=== PATIENT | female | born 1930 | race African-American/Black ===

== ENCOUNTER 2017-12-04 20:48 | Inpatient (IN) | payer MEDICARE, MEDICAID ==
--- NOTE | 2017-12-04 23:14 | RAD ---
CHEST ONE VIEW: History: Congestion. Comparison: 12-03-17 FINDINGS: Worsening perihilar opacities. The heart size is enlarged. Dense calcifications of the aorta. No pneumothorax. IMPRESSION: Worsening opacities concerning for worsening edema. Multifocal infection is also within the different ial. POS: [facility]
[2017-12-04 23:18] LABS: #Eosinphils 0.2 thou/uL (0.0-0.7); #Lymphocytes 1.4 thou/uL (1.20-3.40); #Monocytes 0.7 thou/uL (0.11-0.59); #Neutrophils 4.3 thou/uL (1.40-6.50); %Basophils 0.3 % (0.0-1.0); %Eosinophils 2.5 % (0.0-10.0); %Lymphocytes 20.7 % (21.0-51.0); %Monocytes 10.6 % (0.0-10.0); %Neutrophils 65.9 % (42.0-75.0); Hemoglobin 10.1 g/dL (12.0-16.0); Mean Corpuscular HGB CONC 32.6 g/dL (32.0-36.0); Mean Corpuscular Hemoglobin 30.3 pg (27.0-31.0); Mean Corpuscular Volume 93.2 fl (81.0-99.0); Mean Platelet Volume 8.3 fL (7.4-10.4); Platelet Count 258 thou/uL (130-400); RBC Distribution Width 13.7 % (11.5-14.5); Red Blood Cell (RBC) Count 3.34 mill/uL (4.20-5.40); White Blood Cell (WBC) Count 6.6 thou/uL (4.8-10.8)
[2017-12-04 23:38] LABS: ALT (SGPT) 8 U/L (8-55); AST (SGOT) 14 U/L (5-34); Albumin 3.2 g/dL (3.4-4.8); Alkaline Phosphatase 84 U/L (40-150); Anion Gap 14 mmol/L (10-20); BUN (Urea Nitrogen) 33 mg/dL (9.8-20.1); Bilirubin, Total 0.3 mg/dL (0.2-1.2); CK (CPK) 37 U/L (29-168); Calc. Creatinine Clearance 0 mL/min (70-130); Calcium 9.1 mg/dL (7.8-10.44); Carbon Dioxide 21 mmol/L (23-31); Chloride 107 mmol/L (98-107); Estimated GFR-MDRD 23; Globulin 4.2 g/dL (2.4-3.5); Glucose 107 mg/dL (83-110); Potassium 4.3 mmol/L (3.5-5.1); Protein, Total 7.4 g/dL (6.0-8.3); Sodium 138 mmol/L (136-145)
[2017-12-04 23:43] LABS: CKMB 0.7 ng/mL (0-6.6)
[2017-12-05] MEDS ORDERED: Furosemide 40 MG/4 ML VIAL ONE ×3 (00:01→16:47)
[2017-12-05 00:06] LABS: Bilirubin Negative (Negative); Blood, Urine Negative (Negative); Clarity CLEAR (Clear); Glucose, Urine (Dipstick) Negative (Negative); Leukocyte Negative (Negative); Nitrite Negative (Negative); Protein, Urine (Dipstick) Negative (Neg-Trace); Specific Gravity, Urine 1.018 (1.002-1.036); Urobilinogen 0.2 mg/dL (0.2-1.0); pH, Urine 5.5 (5.0-9.0)
[2017-12-05] MEDS ORDERED: Azithromycin 500 MG in Sodium Chloride 0.9% 250 ML 250 ML IVPB SCH (01:45)
[2017-12-05] MEDS ORDERED: Bisacodyl 5 MG TAB PO PRN (01:55)
[2017-12-05] MEDS ORDERED: Ondansetron ODT 4 MG TAB PO PRN (01:55)
[2017-12-05] MEDS ORDERED: Acetaminophen 650 MG Suppository PR PRN (01:55)
[2017-12-05] MEDS ORDERED: Ondansetron HCl/PF 4 MG/2 ML Vial IVP PRN (01:55)
[2017-12-05 04:32] LABS: #Eosinphils 0.2 thou/uL (0.0-0.7); #Lymphocytes 1.5 thou/uL (1.20-3.40); #Monocytes 0.7 thou/uL (0.11-0.59); #Neutrophils 3.7 thou/uL (1.40-6.50); %Basophils 0.5 % (0.0-1.0); %Lymphocytes 23.8 % (21.0-51.0); %Monocytes 11.9 % (0.0-10.0); %Neutrophils 60.8 % (42.0-75.0); Hemoglobin 10.2 g/dL (12.0-16.0); Mean Corpuscular HGB CONC 33.1 g/dL (32.0-36.0); Mean Corpuscular Hemoglobin 30.7 pg (27.0-31.0); Mean Corpuscular Volume 92.8 fl (81.0-99.0); Mean Platelet Volume 8.9 fL (7.4-10.4); Platelet Count 244 thou/uL (130-400); RBC Distribution Width 13.8 % (11.5-14.5); Red Blood Cell (RBC) Count 3.33 mill/uL (4.20-5.40); White Blood Cell (WBC) Count 6.1 thou/uL (4.8-10.8)
[2017-12-05 04:48] LABS: Anion Gap 14 mmol/L (10-20); BUN (Urea Nitrogen) 32 mg/dL (9.8-20.1); Calc. Creatinine Clearance 0 mL/min (70-130); Carbon Dioxide 21 mmol/L (23-31); Chloride 108 mmol/L (98-107); Estimated GFR-MDRD 24; Glucose 90 mg/dL (83-110); Potassium 3.7 mmol/L (3.5-5.1); Sodium 139 mmol/L (136-145)
--- NOTE | 2017-12-05 05:49 | HP ---
PRIMARY CARE PHYSICIAN: Presley Hatch D.O. CHIEF COMPLAINT: Dyspnea on exertion. HISTORY OF PRESENT ILLNESS: This is an 87-year-old -[place] female with a known history of d iastolic congestive heart failure, who reports a 1-month history of progressive dyspnea on exertion a nd increasing shortness of breath at rest as well. The patient reports that over the last week it robertson s got severely worse and so she went into the [place] emergency room on Tuesday night. They discus sed admission to the hospital was full and watched her in the ER overnight. They treated her for CHF and COPD exacerbations. She had some improvement in her symptoms this morning and so she was discha rged on a double dose of oral Lasix. The patient reports that she went home, she did take the increa sed dose of Lasix; however, she had poor urine output over the course of the day, had increasing shor tness of breath and severe dyspnea on exertion, so she returned to our emergency room. The patient r eports she does have oxygen at home, but she does not use it very often. She does report that she robertson s had a little bit of congestion and some cough productive of thick dark sputum over the last few day s. She has not noticed any worsening of edema in her lower extremities. PAST MEDICAL HISTORY: 1. Chronic respiratory failure with recurrent episodes of hypoxia. 2. Diastolic congestive heart failure. 3. Possible chronic obstructive pulmonary disease. 4. Hypertension. 5. Chronic kidney disease stage 2. 6. Paroxysmal atrial fibrillation on Xarelto. 7. Dyslipidemia. 8. Gastroesophageal reflux disease. 9. Depression. 10. Allergic rhinitis. 11. Chronic normocytic anemia. 12. Morbid obesity. PAST SURGICAL HISTORY: 1. Aortic valve replacement. 2. Cardioversion for atrial fibrillation. 3. Partial hysterectomy. SOCIAL HISTORY: The patient used to smoke but quit more than 10 years ago. No alcohol or illicit dr ug use. ALLERGIES: 1. IODINATED CONTRAST, oral and IV. 2. LEVOFLOXACIN. 3. CLINDAMYCIN. MEDICATIONS: 1. Lasix 40 mg daily, increased to 80 mg yesterday. 2. Nifedipine extended release 60 mg daily. 3. Risperdal 0.5 mg at night. 4. Xarelto 15 mg daily. 5. Amiodarone 200 mg every 3 days of the week. 6. Atorvastatin 10 mg at night. 7. Fluoxetine 20 mg daily. 8. Feosol 325 mg daily. 9. Hydroxyzine 10 mg 3 times a day. 10. Dexilant 60 mg daily. 11. Nifedipine 40 mg once a day in the morning. 12. Colchicine 0.6 mg daily. 13. Metoprolol succinate 25 mg daily. 14. Percy B one 250 mg daily. 15. Vitamin E D-alpha 400 units daily. 16. Flonase as needed. 17. Clonidine 0.1 mg as needed. 18. Bentyl 20 mg daily. 19. Calcitriol 0.25 mcg daily. 20. Uloric 1 tablet daily. 21. Methylprednisolone 2 mg every other day. 22. Spironolactone 12.5 mg daily. 23. Lorazepam 0.5 mg every 8 hours as needed. 24. Bactrim double strength 1 tablet twice a day. FAMILY HISTORY: Father of heart disease. Mother of complications of diabetes. REVIEW OF SYSTEMS: Constitutional: No fevers or chills. Eyes: No double vision or blurred vision. ENT: A little bit of congestion, no sore throat. Cardiovascular: She has no chest pain, no palpi tations or racing heart. Pulmonary: She gets coughing as per HPI, shortness of breath as per HPI. Sometimes, she gets a little anxious if there is a shortness of breath and taking an Ativan will help if she starts to feel anxious or panicky about it. Gastrointestinal: No abdominal pain, no nausea or vomiting, no diarrhea or constipation. Genitourinary: No dysuria or hematuria. Decreased urine output in spite of the Lasix, and it looks a little dark. Musculoskeletal: No specific muscle aches or joint pains currently. She does have some peripheral edema, worse in the right lower extremity, which is chronic for her ever since an old injury there. Skin: No rashes or other lesions that she has noted. Neurologic: No numbness, tingling, or focal weakness. PHYSICAL EXAMINATION: VITAL SIGNS: Blood pressure 128/51, pulse 68, respirations 24, O2 sat 94% on 2 liters of oxygen, tem perature 98.8. GENERAL: This is a well-developed, obese female who has her nighttime CPAP on now, nasal CPAP and is breathing easier with that on, in no distress. EYES: Pupils equally round and reactive to light. Oropharynx is clear without lesions, erythema, or exudate. NECK: Supple, no lymphadenopathy, no thyroid nodules or enlargement, no JVD. HEART: Regular rate and rhythm. She does have a minimal systolic murmur and a loud closing click S2 . LUNGS: Clear to auscultation bilaterally, no wheezes, crackles, or rhonchi. ABDOMEN: Soft, obese, nontender to palpation, normoactive bowel sounds, no hepatosplenomegaly or oth er masses. EXTREMITIES: She has trace edema in the right lower extremity, none in the left lower extremity. No clubbing or cyanosis. SKIN: No rashes or other lesions noted. NEUROLOGIC: She is able to move all extremities with equal strength and has no facial droop. PSYCHIATRIC: Alert and oriented x3, normal mood and affect. LABORATORY DATA: CBC without leukocytosis, hemoglobin is 10. The complete metabolic panel was notab le for a creatinine of 2.37, this is up from 2.01 two nights ago, the remainder is normal. Brain ludwin riuretic peptide is 506, which is elevated for her even more than the 450 it was yesterday and elevat ed beyond her typical baseline in the 200s. Troponins negative. Urinalysis is negative. Chest x-ra y: I did review the chest x-ray along with the radiologist's report. The patient does seem to have developed mild perihilar fluffy opacities consistent with the development of early pulmonary edema. This was not present on her chest x-ray from yesterday. ASSESSMENT AND PLAN: 1. Acute on chronic diastolic congestive heart failure refractory to outpatient treatment. We will need to admit to the hospital. We will get an echocardiogram. We will give IV Lasix as well as cont inue her spironolactone, daily weights and fluid restriction with a low-salt diet. We will consult Xiomy Millan. 2. Acute on chronic renal failure. This is getting worse and is making it more difficult to get her diuresed. We will consult Dr. Hughes, her current production reproduction manager, and she actually had an appointmen t with him in a couple of days and will monitor closely. 3. Hypertension. We will resume the patient's home medications. 4. Atrial fibrillation. We will resume the patient's Xarelto. 5. Gastrointestinal prophylaxis. Put the patient back on her PPI. 6. Deep venous thrombosis prophylaxis. The patient already is on the Xarelto. 7. CODE STATUS: The patient is a full code. Should she be incapacitated, her son will be her medic al decision maker, his name is Manoj Roper.
[2017-12-05] MEDS: Furosemide 40 MG/4 ML VIAL SLOW IVP SCH ×2 (07:30→16:49)
[2017-12-05] MEDS ORDERED: Famotidine 20 MG TAB PO SCH (09:00)
--- NOTE | 2017-12-05 11:00 | CON ---
DATE OF CONSULTATION: 12/05/2017 CONSULTING PHYSICIAN: Dr. Chew. REASON FOR CONSULTATION: Acute kidney injury. REASON FOR ADMISSION: Shortness of breath. HISTORY OF PRESENT ILLNESS: This is an 87-year-old female with history of CHF, chronic kidne y disease, hypertension, hyperlipidemia, depression who came to the hospital with shortness of breath . She has been having fluid overload and is being treated for that. Her renal function was also fou nd to be worse from her baseline. Her baseline creatinine runs around 1.5-2 and she was found at 2.3 , but got better with IV fluids. She is also feeling better and breathing better. Her son was at th e bedside. No fever or chills. She was recently started on some antibiotics and no chest pain histo ry or palpitation reported. No abdominal pain, nausea, vomiting. PAST MEDICAL HISTORY: Positive for chronic respiratory failure with hypoxia, congestive heart failur e, COPD, hypertension, CKD, atrial fibrillation, hyperlipidemia, depression, anemia, morbid obesity. PAST SURGICAL HISTORY: Aortic valve replacement, cardioversion for atrial fibrillation, partial hyst erectomy. HOME MEDICATIONS: Include Lasix, nifedipine, Risperdal, Xarelto, amiodarone, atorvastatin, fluoxetin e, Feosol, hydroxyzine, Dexilant, colchicine, metoprolol, Percy-B, vitamin E, Flonase, clonidine, Bent yl, Calcitriol, Uloric, methylprednisolone, spironolactone, lorazepam, Bactrim. ALLERGIES: To IODINATED CONTRAST, LEVOFLOXACIN and CLINDAMYCIN. SOCIAL HISTORY: Quit smoking 10 years back. No alcohol or illicit drug abuse. FAMILY HISTORY: Positive for heart disease. REVIEW OF SYSTEMS: The following complete review of systems was negative, unless otherwise mentioned in the HPI or below: Constitutional: Weight loss or gain, ability to conduct usual activities. Skin: Rash, itching. Eyes: Double vision, pain. ENT/Mouth: Nose bleeding, neck stiffness, pain, tenderness. Cardiovascular: Palpitations, dyspnea on exertion, orthopnea. Respiratory: Shortness of breath, wheezing, cough, hemoptysis, fever or night sweats. Gastrointestinal: Poor appetite, abdominal pain, heartburn, nausea, vomiting, constipation, or diarr hea. Genitourinary: Urgency, frequency, dysuria, nocturia. Musculoskeletal: Pain, swelling. Neurologic/Psychiatric: Anxiety, depression. Allergy/Immunologic: Skin rash, bleeding tendency. PHYSICAL EXAMINATION: GENERAL: This is a morbidly obese female, in no apparent distress. VITAL SIGNS: Temperature 98.6, pulse 65, respirations 16, blood pressure 113/42. HEENT: Atraumatic, normocephalic. Oral mucosa is moist. NECK: Supple. CARDIOVASCULAR: S1, S2, heard. Rate and rhythm regular. RESPIRATORY: Clear. GASTROINTESTINAL: Abdomen is soft. MUSCULOSKELETAL: 1+ edema. DERMATOLOGIC: No skin rash. NEUROLOGIC: Alert, awake. PSYCHIATRIC: Mood and affect normal. LABORATORY DATA: Hemoglobin is 10.2, potassium is 3.7, BUN is 32, creatinine is 2.8. ASSESSMENT AND PLAN: 1. Acute kidney injury on chronic kidney disease, baseline creatinine around 1.5, currently creatini ne is getting better with IV diuretics. Agree with diuretics as tolerated. Currently on Lasix IV tw ice a day. We will follow the renal function and electrolytes. 2. Hypokalemia, mild, monitor closely magnesium and potassium level and replace. 3. Hypoalbuminemia. 4. Hypertension, stable. 4. Anemia of chronic disease. 5. Obesity. 6. Acidosis, mild. 7. Elevated BNP with fluid overload. 8. Cardiorenal syndrome. Agree with IV diuretics for now. Monitor renal function, which is getting better on diuresis, so mos t likely acute kidney injury is secondary to cardiorenal syndrome. We will continue to follow. Than k marcus for the consultation.
[2017-12-05] MEDS: Spironolactone 25 MG TAB PO SCH (13:55)
[2017-12-05] MEDS: Docusate 100 MG CAP PO SCH ×2 (13:56→21:27)
[2017-12-05] MEDS ORDERED: Lorazepam 0.5 MG TAB PO PRN (15:15)
[2017-12-05] MEDS ORDERED: cloNIDine 0.1 MG TAB PO PRN (15:15)
--- NOTE | 2017-12-05 15:18 | PDOC.EVN ---
Event Note - Event Note Event Note: Pt seen and examined in ER HOLD son at [facility].Qs answered.chart reviewed. feels much better. VSS NAD CTA b/l w few basilar carckles. RRR labs reviewed. Cr improving. 1.Ac Diastolic CHF 2.Possible PNA 3.Ac on CKD restart home meds including Eliquis. Awaiting cardiology and Nephrology recs. cont lasix. am labs
[2017-12-05] MEDS ORDERED: Furosemide 20 MG/2 ML VIAL ONE (16:46)
[2017-12-05] MEDS ORDERED: Amoxicillin/Potassium Clav 875 MG TAB ONE (16:53)
[2017-12-05] MEDS: Apixaban 5 MG TAB PO SCH ×2 (17:12→21:27)
[2017-12-05] MEDS: Amoxicillin/Potassium Clav 875 MG TAB PO SCH ×2 (17:12→21:27)
[2017-12-05] MEDS: risperiDONE 1 MG TAB PO SCH (21:28)
[2017-12-05] MEDS: Atorvastatin Calcium 10 MG TAB PO SCH (21:28)
--- NOTE | 2017-12-05 22:42 | CON ---
DATE OF CONSULTATION: 12/05/2017 REASON FOR CONSULTATION: Congestive heart failure. HISTORY OF PRESENT ILLNESS: Jacquelin is an 87-year-old woman. She has a history of transcutaneous aorti c valve replacement, history of atrial fibrillation, history of diastolic heart failure. The patient was brought to the hospital in [place] a couple of nights ago, she received diuretics with good res ponse. There are no beds here. She was released home, but still had recurrent difficulty breathing. She came back to the emergency room and was given additional diuretics. She is beginning to improv e now, she is feeling better. HOME MEDICATIONS: 1. Nifedipine long-acting 60 mg a day. 2. Lasix. 3. Risperdal. 4. Eliquis. 5. Amiodarone 100 mg a day. 6. Metoprolol. 7. Lipitor. 8. Hydralazine 25 mg 3 times a day. ALLERGIES: 1. IODINE CONTRAST. 2. LEVOFLOXACIN. 3. CLINDAMYCIN. SOCIAL HISTORY: Previous smoking, quit over 10 years ago. PAST SURGICAL HISTORY: 1. Transcutaneous aortic valve replacement several years ago. 2. Cardioversion for atrial fibrillation. PAST MEDICAL HISTORY: 1. Diastolic heart failure. 2. Paroxysmal atrial fibrillation. 3. Stage 2 renal failure. REVIEW OF SYSTEMS: Constitutional: No significant weight gain or loss. Vision: No changes. Heari ng: No changes. Pulmonary: No cough or wheezing. Gastrointestinal: No nausea, vomiting, diarrhea . Skin: No rashes. Neurologic: No unilateral weakness or numbness. Psychiatric: No unusual depr ession or anxiety. PHYSICAL EXAMINATION: GENERAL: This is a pleasant elderly woman. She says she is feeling better. VITAL SIGNS: Blood pressure 171/69, pulse 60 regular. HEENT: Eyes, sclerae nonicteric. Mouth, mucous membranes moist. NECK: Supple, no lymphadenopathy. LUNGS: Clear, no wheezing, rales or rhonchi. CARDIAC: Normal S1, normal S2. There is no murmur, rub or gallop. ABDOMEN: Soft, nontender, no hepatosplenomegaly. EXTREMITIES: Warm, dry. No clubbing, no cyanosis or edema. PERTINENT LABORATORY FINDINGS: BNP 506.7, creatinine 2.28. Estimated GFR is 24. On the monitor, tommy porter is in sinus rhythm. Echocardiogram reveals normal transcutaneous aortic valve function, normal ejection fraction, pulmona ry hypertension with pulmonary artery pressure 70 mmHg systolic. CONCLUSION: 1. Diastolic heart failure. 2. Previous transcutaneous aortic valve functioning normally. 3. Stage 4 renal failure. 4. History of hypertension. PLAN: 1. Agree with decreasing nifedipine. 2. Diuretics intravenously. 3. Continue anticoagulation, reduced dose. 4. I will be glad to follow with you.
[2017-12-06] MEDS: Levothyroxine Sodium 75 MCG TAB PO SCH (05:30)
[2017-12-06] MEDS: Furosemide 40 MG/4 ML VIAL SLOW IVP SCH ×2 (05:30→15:04)
[2017-12-06 05:50] LABS: #Eosinphils 0.2 thou/uL (0.0-0.7); #Lymphocytes 1.2 thou/uL (1.20-3.40); #Monocytes 0.8 thou/uL (0.11-0.59); #Neutrophils 4.7 thou/uL (1.40-6.50); %Basophils 0.1 % (0.0-1.0); %Eosinophils 3.1 % (0.0-10.0); %Lymphocytes 16.9 % (21.0-51.0); %Monocytes 11.5 % (0.0-10.0); %Neutrophils 68.4 % (42.0-75.0); Hemoglobin 10.3 g/dL (12.0-16.0); Mean Corpuscular HGB CONC 30.9 g/dL (32.0-36.0); Mean Corpuscular Hemoglobin 29.2 pg (27.0-31.0); Mean Corpuscular Volume 94.5 fl (81.0-99.0); Mean Platelet Volume 8.6 fL (7.4-10.4); Platelet Count 245 thou/uL (130-400); RBC Distribution Width 13.8 % (11.5-14.5); Red Blood Cell (RBC) Count 3.54 mill/uL (4.20-5.40); White Blood Cell (WBC) Count 6.8 thou/uL (4.8-10.8)
[2017-12-06 06:12] LABS: Anion Gap 16 mmol/L (10-20); BUN (Urea Nitrogen) 31 mg/dL (9.8-20.1); Calc. Creatinine Clearance 33 mL/min (70-130); Calcium 9.1 mg/dL (7.8-10.44); Carbon Dioxide 17 mmol/L (23-31); Chloride 109 mmol/L (98-107); Estimated GFR-MDRD 29; Glucose 80 mg/dL (83-110); Potassium 4.1 mmol/L (3.5-5.1); Sodium 138 mmol/L (136-145)
[2017-12-06] MEDS ORDERED: Ferrous Sulfate 325 MG TAB PO SCH (09:00)
[2017-12-06] MEDS ORDERED: (Febuxostat [Uloric] 40 MG) PO SCH (09:00)
[2017-12-06] MEDS: Apixaban 5 MG TAB PO SCH ×2 (09:14→21:49)
[2017-12-06] MEDS: Amiodarone 200 MG TAB PO SCH (09:14)
[2017-12-06] MEDS: Amoxicillin/Potassium Clav 875 MG TAB PO SCH ×2 (09:14→21:49)
[2017-12-06] MEDS: hydrALAZINE 25 MG TAB PO SCH (09:15)
[2017-12-06] MEDS: Ferrous Sulfate 325 MG TAB PO SCH (09:15)
[2017-12-06] MEDS: methylPREDNISolone 4 mg Tablet PO SCH (09:15)
[2017-12-06] MEDS: FLUoxetine HCl 20 MG CAP PO SCH (09:15)
[2017-12-06] MEDS: Docusate 100 MG CAP PO SCH ×2 (09:15→21:50)
[2017-12-06] MEDS: Calcitriol 0.25 MCG CAP PO SCH (09:15)
[2017-12-06] MEDS: Potassium Chloride 20 MEQ TAB PO SCH (09:16)
[2017-12-06] MEDS: Spironolactone 25 MG TAB PO SCH (09:16)
[2017-12-06] MEDS: NIFEdipine XL 30 MG TAB PO SCH (09:16)
[2017-12-06] MEDS: Vitami E (Dl,Tocopheryl Acet) 400 UNITS CAP PO SCH (09:17)
--- NOTE | 2017-12-06 13:43 | PRG ---
DATE OF SERVICE: 12/06/2016 SUBJECTIVE: Patient was seen and examined at bedside and overnight events noted. Patient denies any shortness of breath or chest pain or palpitation. No history of nausea or vomiting or diarrhea or f ever or chills or cramps. OBJECTIVE: GENERAL: This is an obese elderly female in no apparent distress. VITAL SIGNS: Temperature 99.3, pulse 71, respiratory rate 20, blood pressure 123/60. HEENT: Atraumatic, normocephalic. Oral mucosa is moist. NECK: Supple. CARDIOVASCULAR: S1, S2 heard. Rate and rhythm regular. RESPIRATORY: Clear to auscultation. GASTROINTESTINAL: Abdomen is soft. MUSCULOSKELETAL: 1+ edema. DERMATOLOGIC: No skin rash. NEUROLOGIC: Alert and awake and oriented x3. No focal neurologic deficits. Moving all the extremiti es. LABORATORY DATA: Potassium is 4.1, BUN is 31, creatinine 1.9. ASSESSMENT AND PLAN: 1. Acute kidney injury on chronic kidney disease, stage 3. Renal function is getting better with di uretics. 2. Cardiorenal syndrome. 3. Edema. 4. Fluid overload. 5. Obesity. 6. Hypokalemia, replace and monitor. 7. Hypoalbuminemia. 8. Plan is to continue on diuretics. Renal function is getting better. Continue close monitor, livia al function and electrolytes.
--- NOTE | 2017-12-06 16:06 | PRG ---
DATE OF SERVICE: 12/06/2017 SUBJECTIVE: Ms. Roper is breathing better today. No chest pain. No shortness of breath. OBJECTIVE: VITAL SIGNS: Her oxygen saturation is 94% on 2 liters. Blood pressure is variable, apparently after she got up to walk had pressure with 204/82, but then sitting is 138/58. Pulse 76 and regular. LUNGS: Clear. CARDIAC: Normal S1, normal S2. ASSESSMENT: 1. Diastolic congestive heart failure. 2. Renal failure stage 3, stable, actually improved. Creatinine is 1.98. 3. Hypertension, labile. 4. Previous transcutaneous aortic valve replacement with normal function of the valve. PLAN: 1. Continue the diuretics. 2. We will check iron levels in the morning. 3. Continue to monitor I and O. I think it has not been measured accurately.
--- NOTE | 2017-12-06 16:35 | PDOC.PN ---
- Subjective Encounter Start Date: 12/06/17 Encounter Start Time: 16:25 Subjective: f/u for acute/chronic diastolic CHF with EF 55% and pulm HTN. Overall SOB -: improved. Ambulated short distance with SOB. Mild cough. - Objective Resuscitation Status: Resuscitation Status FULL:Full Resuscitation MAR Reviewed: Yes Vital Signs & Weight: Vital Signs (12 hours) Temp Pulse Pulse Pulse Resp BP BP 12/06/17 11:40 98.6 F 76 17 12/06/17 10:15 69 86 138/58 L 204/82 H 12/06/17 08:37 73 80 153/67 H 158/67 H 12/06/17 07:46 98.6 F 76 17 12/06/17 07:43 97.6 F 73 20 BP Pulse Ox Pulse Ox Pulse Ox 12/06/17 11:40 137/60 96 12/06/17 10:15 12/06/17 08:37 91 L 90 L 12/06/17 07:46 92 L 12/06/17 07:43 146/64 H 92 L Weight Weight 239 lb I&O: 12/05/17 12/06/17 12/07/17 06:59 06:59 06:59 Intake Total 240 Output Total 800 Balance -560 Result Diagrams: 12/06/17 05:12 12/06/17 05:12 Additional Labs: Microbiology 12/05/17 00:27 Venous blood - Right Arm Blood Culture - Preliminary Specimen has been received and culture in progress. No Growth to date. 12/05/17 00:27 Venous blood - Left Arm Blood Culture - Preliminary Specimen has been received and culture in progress. No Growth to date. Laboratory Tests 12/04/17 12/04/17 12/04/17 23:03 23:03 23:03 Hgb 10.1 L Creatinine 2.37 H B-Natriuretic Peptide 506.7 H 12/05/17 12/05/17 03:59 03:59 Hgb 10.2 L Creatinine 2.28 H B-Natriuretic Peptide Radiology Reviewed by me: Yes (2D echo - EF 55%, pulm HTN, ANDERSON, bioprosthetic AV ) EKG Reviewed by me: Yes (Tele - SR in 70's) Phys Exam - Physical Examination Constitutional: NAD smiling, responsive HEENT: PERRLA Neck: no JVD, supple diminished in bases II/ LIZ Cardiovascular: RRR Gastrointestinal: soft, non-tender, no distention, positive bowel sounds mild peripheral edema Musculoskeletal: pulses present Neurological: normal sensation, moves all 4 limbs Psychiatric: A&O x 3 Skin: normal turgor, cap refill <2 seconds Dx/Plan (1) Acute diastolic heart failure Code(s): I50.31 - ACUTE DIASTOLIC (CONGESTIVE) HEART FAILURE Status: Acute Comment: Continue Lasix 40mg IV q12h, follow I/O's and daily weight (2) Acute on chronic kidney disease, stage 3 Code(s): N18.3 - CHRONIC KIDNEY DISEASE, STAGE 3 (MODERATE) Status: Acute Comment: Resolving, continue to monitor with diuresis (3) Acute respiratory failure with hypoxemia Code(s): J96.01 - ACUTE RESPIRATORY FAILURE WITH HYPOXIA Status: Acute Comment: Acute component improved, chronic hypoxia with home O2 requirement (4) Obesity (BMI 30-39.9) Code(s): E66.9 - OBESITY, UNSPECIFIED Status: Chronic (5) HTN (hypertension) Code(s): I10 - ESSENTIAL (PRIMARY) HYPERTENSION Status: Chronic Qualifiers: Hypertension type: essential hypertension Qualified Code(s): I10 - Essential (primary) hypertension Comment: Stable, continue home medication regimen (6) Afib Code(s): I48.91 - UNSPECIFIED ATRIAL FIBRILLATION Status: Chronic Qualifiers: Atrial fibrillation type: paroxysmal Qualified Code(s): I48.0 - Paroxysmal atrial fibrillation Comment: Contiue Eliquis 2.5mg BID, rate-controlled and currently in SR - Plan plan discussed w/ family, continue antibiotics, PT/OT, manager social work, respiratory therapy, out of bed/ambulate, DVT proph w/SCDs Stable overall -: Continue Lasix 40mg IV q12h -: OOB/ambulate with assist -: Promethazine 12.5mg PO q6h prn -: Continue Augmentin 875mg BID * AM lab: BMP * Likely home in 24h
[2017-12-06] MEDS: Atorvastatin Calcium 10 MG TAB PO SCH (21:50)
[2017-12-06] MEDS: risperiDONE 1 MG TAB PO SCH (21:50)
[2017-12-06] MEDS: Promethazine HCl 6.25 MG/5 ML Syrup PO PRN (21:51)
[2017-12-06] MEDS ORDERED: Furosemide 40 MG/4 ML VIAL SLOW IVP SCH (22:00)
[2017-12-06] MEDS: Acetaminophen 325 MG TAB PO PRN (22:02)
[2017-12-07] MEDS: Furosemide 40 MG/4 ML VIAL SLOW IVP SCH ×2 (05:45→15:12)
[2017-12-07] MEDS: Levothyroxine Sodium 75 MCG TAB PO SCH (05:45)
[2017-12-07 06:00] LABS: Iron 27 ug/dL (50-170); Iron Binding Capacity, Total 185 mcg/dL (265-497)
[2017-12-07 06:01] LABS: Anion Gap 12 mmol/L (10-20); BUN (Urea Nitrogen) 33 mg/dL (9.8-20.1); Calc. Creatinine Clearance 29 mL/min (70-130); Calcium 9.2 mg/dL (7.8-10.44); Carbon Dioxide 23 mmol/L (23-31); Chloride 105 mmol/L (98-107); Estimated GFR-MDRD 25; Glucose 86 mg/dL (83-110); Iron 25 ug/dL (50-170); Potassium 3.7 mmol/L (3.5-5.1); Sodium 136 mmol/L (136-145)
[2017-12-07 06:25] LABS: Hemoglobin 10.9 g/dL (12.0-16.0); Lymphocytes 16 % (21-51); MDiff Complete? YES; Mean Corpuscular HGB CONC 32.5 g/dL (32.0-36.0); Mean Corpuscular Hemoglobin 30.4 pg (27.0-31.0); Mean Corpuscular Volume 93.5 fl (81.0-99.0); Mean Platelet Volume 8.7 fL (7.4-10.4); Monocytes 15 % (0-10); Neutrophil 69 % (42-75); Platelet Count 227 thou/uL (130-400); RBC Distribution Width 13.7 % (11.5-14.5); Red Blood Cell (RBC) Count 3.59 mill/uL (4.20-5.40)
[2017-12-07] MEDS: Amiodarone 200 MG TAB PO SCH (09:09)
[2017-12-07] MEDS: FLUoxetine HCl 20 MG CAP PO SCH (09:10)
[2017-12-07] MEDS: Apixaban 5 MG TAB PO SCH ×2 (09:10→21:02)
[2017-12-07] MEDS: Ferrous Sulfate 325 MG TAB PO SCH (09:10)
[2017-12-07] MEDS: hydrALAZINE 25 MG TAB PO SCH (09:10)
[2017-12-07] MEDS: Docusate 100 MG CAP PO SCH ×2 (09:10→21:02)
[2017-12-07] MEDS: Amoxicillin/Potassium Clav 875 MG TAB PO SCH ×2 (09:10→21:01)
[2017-12-07] MEDS: Potassium Chloride 20 MEQ TAB PO SCH (09:11)
[2017-12-07] MEDS: NIFEdipine XL 30 MG TAB PO SCH (09:11)
[2017-12-07] MEDS: Vitami E (Dl,Tocopheryl Acet) 400 UNITS CAP PO SCH (09:11)
[2017-12-07] MEDS: Spironolactone 25 MG TAB PO SCH (09:11)
[2017-12-07] MEDS: Promethazine HCl 6.25 MG/5 ML Syrup PO PRN (09:12)
--- NOTE | 2017-12-07 12:53 | PDOC.PN ---
- Subjective Encounter Start Date: 12/07/17 Encounter Start Time: 12:25 Subjective: f/u for CHF exacerbation receiving IV Lasix. Overall feels better but -: developed fever 101.6F last pm. Currently on Augmentin. - Objective Resuscitation Status: Resuscitation Status FULL:Full Resuscitation MAR Reviewed: Yes Vital Signs & Weight: Vital Signs (12 hours) Temp Pulse Resp BP Pulse Ox 12/07/17 07:54 98.5 F 78 22 H 171/71 H 92 L 12/07/17 04:00 98.9 F 74 20 149/69 H 92 L Weight Weight 237 lb 6.4 oz Tmax - 101.6F I&O: 12/06/17 12/07/17 12/08/17 06:59 06:59 06:59 Intake Total 240 1550 Output Total 800 2450 Balance -560 -900 Result Diagrams: 12/07/17 04:44 12/07/17 04:44 Additional Labs: Microbiology 12/05/17 00:27 Venous blood - Right Arm Blood Culture - Preliminary Specimen has been received and culture in progress. No Growth to date. 12/05/17 00:27 Venous blood - Left Arm Blood Culture - Preliminary Specimen has been received and culture in progress. No Growth to date. Laboratory Tests 12/04/17 12/04/17 12/04/17 23:03 23:03 23:03 Hgb 10.1 L Creatinine 2.37 H B-Natriuretic Peptide 506.7 H 12/05/17 12/05/17 03:59 03:59 Hgb 10.2 L Creatinine 2.28 H B-Natriuretic Peptide EKG Reviewed by me: Yes (Tele - SR in 70's) Phys Exam - Physical Examination Constitutional: NAD HEENT: PERRLA, oral pharynx no lesions Neck: no JVD, supple scattered coarse sounds in bases Cardiovascular: RRR Gastrointestinal: soft, non-tender, no distention, positive bowel sounds Musculoskeletal: pulses present, edema present Neurological: normal sensation, moves all 4 limbs Skin: normal turgor, cap refill <2 seconds Dx/Plan (1) Febrile illness, acute Code(s): R50.9 - FEVER, UNSPECIFIED Status: Acute Comment: ? bronchitis or viral syndrome or developing pneumonia, continue Augmentin, check Influenza A/B antigen, Tylenol for control (2) Acute diastolic heart failure Code(s): I50.31 - ACUTE DIASTOLIC (CONGESTIVE) HEART FAILURE Status: Acute Comment: Continue Lasix 40mg IV daily, follow I/O's and daily weight (3) Acute on chronic kidney disease, stage 3 Code(s): N18.3 - CHRONIC KIDNEY DISEASE, STAGE 3 (MODERATE) Status: Acute Comment: Resolving, continue to monitor with diuresis (4) Acute respiratory failure with hypoxemia Code(s): J96.01 - ACUTE RESPIRATORY FAILURE WITH HYPOXIA Status: Acute Comment: Acute component improved, chronic hypoxia with home O2 requirement (5) Obesity (BMI 30-39.9) Code(s): E66.9 - OBESITY, UNSPECIFIED Status: Chronic (6) HTN (hypertension) Code(s): I10 - ESSENTIAL (PRIMARY) HYPERTENSION Status: Chronic Qualifiers: Hypertension type: essential hypertension Qualified Code(s): I10 - Essential (primary) hypertension Comment: Stable, continue home medication regimen (7) Afib Code(s): I48.91 - UNSPECIFIED ATRIAL FIBRILLATION Status: Chronic Qualifiers: Atrial fibrillation type: paroxysmal Qualified Code(s): I48.0 - Paroxysmal atrial fibrillation Comment: Contiue Eliquis 2.5mg BID, rate-controlled and currently in SR - Plan plan discussed w/ family, continue antibiotics, PT/OT, high school social studies tutor, respiratory therapy, out of bed/ambulate, DVT proph w/SCDs Stable overall -: Check Influenza A/B antigen -: Continue Augmentin 875mg BID -: OOB/sit upright -: AM lab: BMP, CBC * ? Home in 24h if remains afebrile
[2017-12-07] MEDS: Acetaminophen 325 MG TAB PO PRN ×2 (17:07→21:02)
--- NOTE | 2017-12-07 17:42 | PRG ---
DATE OF SERVICE: 12/07/2017 SUBJECTIVE: The patient was seen and examined at bedside and overnight events noted. Patient denies any shortness of breath or chest pain or palpitation. No history of nausea or vomiting or diarrhea or fever or chills or cramps. OBJECTIVE: GENERAL: This is an obese female in no apparent distress. VITAL SIGNS: Temperature 100.5, pulse 70, respiratory rate 18, and blood pressure 153/65. HEENT: Atraumatic, normocephalic. Oral mucosa is moist Neck: Supple Cardiovascular: S1 and S2 heard. Rate and rhythm regular Respiratory: Clear to auscultation Gastrointestinal: Abdomen is soft Musculoskeletal: No tenderness, No edema Dermatologic: No skin rash Neurologic: Alert and awake and oriented X3. No focal neurologic deficits. Moving all the extremiti es. Psychiatric: Mood and affect normal LABORATORY DATA: Potassium 3.7, BUN is 33, creatinine is 2.2. ASSESSMENT AND PLAN: 1. Acute kidney injury on chronic kidney disease stage 3 or 4. Renal function has been fluctuating. Continue on diuretics as tolerated, but if creatinine continues to trend up, might have to reduce t he dose of Lasix. 2. Cardiorenal syndrome. She had hemodialysis and fluid overload. 3. Obesity. 4. Hypokalemia. Monitor and replace as tolerated. Plan is to monitor renal function closely on diuretics.
--- NOTE | 2017-12-07 18:33 | RAD ---
PORTABLE CHEST ONE VIEW: Date: 12-07-17 Time: 5:12 p.m. History: Shortness of breath. FINDINGS/IMPRESSION: Comparison made with exam of 12-04-17. The heart is enlarged. No lobar consolidation, pneumothoraces or large effusions are seen. There is m ild pulmonary vascular congestion. POS: H
[2017-12-07] MEDS ORDERED: Diabetic Tussin 200 MG/10 ML UDCUP PO PRN (19:18)
[2017-12-07] MEDS ORDERED: Cefepime 2 GM, Syringe 2.5 ML in Sterile Water 10 ML SLOW IVP SCH (19:30)
[2017-12-07] MEDS: Atorvastatin Calcium 10 MG TAB PO SCH (21:01)
[2017-12-07] MEDS: risperiDONE 1 MG TAB PO SCH (21:02)
[2017-12-08] MEDS: Levothyroxine Sodium 75 MCG TAB PO SCH (04:41)
[2017-12-08] MEDS: Vancomycin HCl 750 MG in Sodium Chloride 0.9% 250 ML 250 ML IVPB SCH (04:41)
[2017-12-08] MEDS: Furosemide 40 MG/4 ML VIAL SLOW IVP SCH (04:41)
[2017-12-08 05:30] LABS: Anion Gap 13 mmol/L (10-20); BUN (Urea Nitrogen) 32 mg/dL (9.8-20.1); Calc. Creatinine Clearance 29 mL/min (70-130); Calcium 9.1 mg/dL (7.8-10.44); Carbon Dioxide 24 mmol/L (23-31); Chloride 100 mmol/L (98-107); Estimated GFR-MDRD 26; Glucose 97 mg/dL (83-110); Potassium 4.2 mmol/L (3.5-5.1); Sodium 133 mmol/L (136-145)
[2017-12-08 05:43] LABS: Band 1 % (5-11); Eosinophils 1 % (0-10); Lymphocytes 18 % (21-51); MDiff Complete? YES; Mean Corpuscular HGB CONC 31.7 g/dL (32.0-36.0); Mean Corpuscular Hemoglobin 29.5 pg (27.0-31.0); Mean Corpuscular Volume 92.8 fl (81.0-99.0); Mean Platelet Volume 8.5 fL (7.4-10.4); Monocytes 8 % (0-10); Neutrophil 72 % (42-75); PLT Morphology Comment Appears Adequate; Platelet Count 237 thou/uL (130-400); RBC Distribution Width 13.7 % (11.5-14.5); Red Blood Cell (RBC) Count 3.74 mill/uL (4.20-5.40); White Blood Cell (WBC) Count 6.2 thou/uL (4.8-10.8)
[2017-12-08] MEDS: Acetaminophen 325 MG TAB PO PRN (07:28)
[2017-12-08] MEDS ORDERED: Vancomycin HCl 1 GM in Premix Bag 1 BAG IVPB SCH (09:00)
[2017-12-08] MEDS: hydrALAZINE 25 MG TAB PO SCH (09:07)
[2017-12-08] MEDS: Ferrous Sulfate 325 MG TAB PO SCH (09:12)
[2017-12-08] MEDS: Docusate 100 MG CAP PO SCH ×2 (09:12→21:52)
[2017-12-08] MEDS: methylPREDNISolone 4 mg Tablet PO SCH (09:12)
[2017-12-08] MEDS: Apixaban 5 MG TAB PO SCH ×2 (09:13→21:52)
[2017-12-08] MEDS: Calcitriol 0.25 MCG CAP PO SCH (09:13)
[2017-12-08] MEDS: Amoxicillin/Potassium Clav 875 MG TAB PO SCH (09:13)
[2017-12-08] MEDS: FLUoxetine HCl 20 MG CAP PO SCH (09:14)
[2017-12-08] MEDS: Vitami E (Dl,Tocopheryl Acet) 400 UNITS CAP PO SCH (09:14)
[2017-12-08] MEDS: Potassium Chloride 20 MEQ TAB PO SCH (09:14)
[2017-12-08] MEDS: Sodium Chloride 0.9% 10 ML ONE ×2 (09:15→11:06)
[2017-12-08] MEDS: Amiodarone 200 MG TAB PO SCH (09:20)
[2017-12-08] MEDS: NIFEdipine XL 30 MG TAB PO SCH (09:27)
[2017-12-08] MEDS ORDERED: Furosemide 40 MG/4 ML VIAL SLOW IVP SCH (09:31)
[2017-12-08] MEDS: Cefepime 2 GM, Syringe 2.5 ML in Sterile Water 10 ML SLOW IVP SCH ×3 (10:30→21:53)
[2017-12-08] MEDS: Spironolactone 25 MG TAB PO SCH (11:08)
--- NOTE | 2017-12-08 11:13 | PDOC.PN ---
- Subjective Encounter Start Date: 12/08/17 Encounter Start Time: 10:55 Subjective: f/u for fever and CHF exacerbation. Still with undulating fever but -: cough improved. No focal complaints or abd pain. No dysuria. - Objective Resuscitation Status: Resuscitation Status FULL:Full Resuscitation MAR Reviewed: Yes Vital Signs & Weight: Vital Signs (12 hours) Temp Pulse Resp BP BP Pulse Ox 12/08/17 09:27 97 125/59 L 12/08/17 09:09 100.4 F H 12/08/17 09:07 97 125/59 L 12/08/17 07:20 101.7 F H 97 20 101/51 L 97 12/08/17 04:45 77 20 151/66 H 92 L Weight Weight 230 lb 14.4 oz Tmax 101.7F I&O: 12/07/17 12/08/17 12/09/17 06:59 06:59 06:59 Intake Total 1550 1080 250 Output Total 2450 1350 900 Balance -900 270 -650 Result Diagrams: 12/08/17 04:46 12/08/17 04:46 Additional Labs: Microbiology 12/07/17 13:50 Nasopharynx Influenza Types A,B Direct EIA - Final 12/05/17 00:27 Venous blood - Right Arm Blood Culture - Preliminary Specimen has been received and culture in progress. No Growth to date. 12/05/17 00:27 Venous blood - Left Arm Blood Culture - Preliminary Specimen has been received and culture in progress. No Growth to date. Laboratory Tests 12/04/17 12/04/17 12/04/17 23:03 23:03 23:03 Hgb 10.1 L Creatinine 2.37 H B-Natriuretic Peptide 506.7 H 12/05/17 12/05/17 03:59 03:59 Hgb 10.2 L Creatinine 2.28 H B-Natriuretic Peptide Radiology Reviewed by me: Yes (PCXR - no acute infiltrates) EKG Reviewed by me: Yes (Tele - SR in 80's) Phys Exam - Physical Examination Constitutional: NAD smiling, alert HEENT: PERRLA, oral pharynx no lesions Neck: no JVD, supple Respiratory: no wheezing, clear to auscultation bilateral Cardiovascular: RRR Gastrointestinal: soft, non-tender, no distention, positive bowel sounds Musculoskeletal: no edema, pulses present Neurological: normal sensation, moves all 4 limbs Skin: normal turgor, cap refill <2 seconds Deviation from normal: Cleaning in place with humberto urine Dx/Plan (1) Febrile illness, acute Code(s): R50.9 - FEVER, UNSPECIFIED Status: Acute Comment: ? bronchitis or viral syndrome, Influenza negative, Resp viral pathogen swab pending, Ucx pending, continue Cefepime and Vancomycin pending final cx results (2) Acute diastolic heart failure Code(s): I50.31 - ACUTE DIASTOLIC (CONGESTIVE) HEART FAILURE Status: Acute Comment: Continue Lasix 20mg IV daily, follow I/O's and daily weight (3) Acute on chronic kidney disease, stage 3 Code(s): N18.3 - CHRONIC KIDNEY DISEASE, STAGE 3 (MODERATE) Status: Acute Comment: Resolving, continue to monitor with diuresis (4) Acute respiratory failure with hypoxemia Code(s): J96.01 - ACUTE RESPIRATORY FAILURE WITH HYPOXIA Status: Acute Comment: Acute component improved, chronic hypoxia with home O2 requirement (5) Obesity (BMI 30-39.9) Code(s): E66.9 - OBESITY, UNSPECIFIED Status: Chronic (6) HTN (hypertension) Code(s): I10 - ESSENTIAL (PRIMARY) HYPERTENSION Status: Chronic Qualifiers: Hypertension type: essential hypertension Qualified Code(s): I10 - Essential (primary) hypertension Comment: Stable, continue home medication regimen (7) Afib Code(s): I48.91 - UNSPECIFIED ATRIAL FIBRILLATION Status: Chronic Qualifiers: Atrial fibrillation type: paroxysmal Qualified Code(s): I48.0 - Paroxysmal atrial fibrillation Comment: Contiue Eliquis 2.5mg BID, rate-controlled and currently in SR - Plan plan discussed w/ family, continue antibiotics, PT/OT, social welfare clerk, respiratory therapy, out of bed/ambulate, DVT proph w/SCDs Stable currently -: Check Resp Virus panel -: Ucx pending -: Continue Cefepime and Vancomycin -: D/C Augmentin * AM lab: BMP
[2017-12-08] MEDS ORDERED: Sodium Chloride 0.9% 10 ML ONE (14:28)
[2017-12-08] MEDS: Furosemide 20 MG/2 ML VIAL SLOW IVP SCH (14:52)
[2017-12-08] MEDS ORDERED: Guaifenesin DM 100-10/5 ML UDCUP PO PRN (15:13)
[2017-12-08] MEDS ORDERED: guaiFENesin ER 600 MG TAB PO SCH (16:00)
[2017-12-08] MEDS: Acetaminophen 500 MG TAB PO PRN ×2 (16:38→23:31)
--- NOTE | 2017-12-08 18:55 | PRG ---
DATE OF SERVICE: 12/08/2017 SUBJECTIVE: The patient was having fever noted at the bedside. OBJECTIVE: GENERAL: This is an elderly female in mild distress. VITAL SIGNS: Temperature 99.1, pulse 84, respiratory rate 20, blood pressure 122/60. HEENT: Atraumatic, normocephalic. Oral mucosa is moist. NECK: Supple. CARDIOVASCULAR: S1 and S2 heard. Rate and rhythm regular. RESPIRATORY: Clear to auscultation. GASTROINTESTINAL: Abdomen is soft. MUSCULOSKELETAL: No tenderness. No edema. DERMATOLOGIC: No skin rash. NEUROLOGIC: Alert and awake and oriented x3. No focal neurologic deficits. Moving all the extremit ies. PSYCHIATRIC: Mood and affect normal. LABORATORY DATA: Potassium is 4.2, BUN is 32, creatinine is 2.1. ASSESSMENT AND PLAN: 1. Acute kidney injury, on chronic kidney disease stage 4. Renal function currently fluctuating but stable in the range. We will monitor. 2. Cardiorenal syndrome. 3. Obesity. 4. Hypokalemia. 5. Edema, fluid overload. 6. Hypertension, stable. PLAN: 1. Plan is to monitor renal function closely, which has been stable. 2. Secondary hyperparathyroidism. Continue on calcitriol. Currently on IV Lasix. We will follow. Plan discussed with the daughter at the bedside. 3. Hypokalemia, on potassium supplements and spironolactone. Monitor potassium closely.
--- NOTE | 2017-12-08 19:55 | PRG ---
DATE OF SERVICE: 12/08/2017 SUBJECTIVE: Ms. Roper is doing better today. She is awake and alert. No shortness of breath. Oxyge n saturation is 95% on room air. PHYSICAL EXAMINATION: VITAL SIGNS: Her blood pressure is 139/63, pulse 90, but she has 101.6 fever. LUNGS: Clear. CARDIAC: Normal S1, normal S2. ABDOMEN: Soft, nontender. EXTREMITIES: There is no edema. ASSESSMENT: 1. Cardiac status improved. Diastolic heart failure, acute on chronic. This appears to be resolved . 2. Renal function is stable, creatinine is 2.15. 3. Fever of uncertain etiology. 4. Paroxysmal atrial fibrillation, still in sinus rhythm. PLAN: 1. She is on antibiotics. 2. Probably discontinue the Cleaning tomorrow. 3. Furosemide dose was reduced.
[2017-12-08] MEDS: risperiDONE 1 MG TAB PO SCH (21:52)
[2017-12-08] MEDS: Atorvastatin Calcium 10 MG TAB PO SCH (21:52)
[2017-12-09] MEDS: Vancomycin HCl 750 MG in Sodium Chloride 0.9% 250 ML 250 ML IVPB SCH (05:02)
[2017-12-09] MEDS: Furosemide 20 MG/2 ML VIAL SLOW IVP SCH ×2 (05:05→14:29)
[2017-12-09] MEDS: Levothyroxine Sodium 75 MCG TAB PO SCH (05:05)
[2017-12-09 05:35] LABS: Anion Gap 16 mmol/L (10-20); BUN (Urea Nitrogen) 38 mg/dL (9.8-20.1); Calc. Creatinine Clearance 26 mL/min (70-130); Carbon Dioxide 21 mmol/L (23-31); Chloride 102 mmol/L (98-107); Estimated GFR-MDRD 23; Glucose 93 mg/dL (83-110); Potassium 4.3 mmol/L (3.5-5.1); Sodium 135 mmol/L (136-145)
[2017-12-09] MEDS ORDERED: Sodium Chloride 0.9% 10 ML ONE ×2 (08:06→14:27)
[2017-12-09] MEDS: Cefepime 2 GM, Syringe 2.5 ML in Sterile Water 10 ML SLOW IVP SCH (08:53)
[2017-12-09] MEDS: Apixaban 5 MG TAB PO SCH (08:55)
[2017-12-09] MEDS: Spironolactone 25 MG TAB PO SCH (08:56)
[2017-12-09] MEDS: Potassium Chloride 20 MEQ TAB PO SCH (08:56)
[2017-12-09] MEDS: Ferrous Sulfate 325 MG TAB PO SCH (08:57)
[2017-12-09] MEDS: Amiodarone 200 MG TAB PO SCH (08:57)
[2017-12-09] MEDS: FLUoxetine HCl 20 MG CAP PO SCH (08:58)
[2017-12-09] MEDS: NIFEdipine XL 30 MG TAB PO SCH (08:58)
[2017-12-09] MEDS: Docusate 100 MG CAP PO SCH (08:58)
[2017-12-09] MEDS ORDERED: guaiFENesin ER 600 MG TAB PO SCH (09:00)
[2017-12-09] MEDS ORDERED: Oseltamivir 75 MG CAP PO SCH (09:00)
[2017-12-09] MEDS: Vitami E (Dl,Tocopheryl Acet) 400 UNITS CAP PO SCH (09:07)
--- NOTE | 2017-12-09 14:29 | PRG ---
DATE OF SERVICE: 12/09/2017 SUBJECTIVE: Patient was seen and examined at bedside and overnight events noted. Patient denies any shortness of breath or chest pain or palpitation. No history of nausea or vomiting or diarrhea or f ever or chills or cramps. OBJECTIVE: GENERAL: This is an obese female in no apparent distress. VITAL SIGNS: Temperature 98, pulse 74, respiratory rate 18, blood pressure 130/73. HEENT: Atraumatic, normocephalic. Oral mucosa is moist. NECK: Supple. CARDIOVASCULAR: S1, S2 heard. Rate and rhythm regular. RESPIRATORY: Clear to auscultation. GASTROINTESTINAL: Abdomen is soft. MUSCULOSKELETAL: No tenderness. No edema. DERMATOLOGIC: No skin rash. NEUROLOGIC: Alert and awake and oriented x3. No focal neurologic deficits. Moving all the extremiti es. PSYCHIATRIC: Mood and affect normal. LABORATORY DATA: Potassium is 4.3, BUN 38, creatinine is 2.4. ASSESSMENT AND PLAN: 1. Acute kidney injury on chronic kidney disease, renal function stable. 2. Cardiorenal syndrome. 3. Fluid overload, much better. 4. Edema. 5. Hypertension. 6. Hypokalemia, replace and monitor. 7. Overall, renal function is stablein the range. We agree with reducing the Lasix dose. Follow up with Cardiology. We will follow.
[2017-12-09] MEDS: Sodium Chloride 0.9% 10 ML ONE (14:32)
[2017-12-09] MEDS: Acetaminophen 500 MG TAB PO PRN (17:08)
[2017-12-09 18:35] VITALS: BP 137/63
[2017-12-09 18:40] VITALS: TEMP 100.6
--- NOTE | 2017-12-09 21:14 | DIS ---
DATE OF ADMISSION: 12/05/2017 DATE OF DISCHARGE: 12/09/2017 DISCHARGE DIAGNOSES: 1. Acute on chronic diastolic congestive heart failure with preserved ejection fraction of 55%-60%. 2. Influenza A positive with acute febrile illness. 3. Acute on chronic kidney disease stage III. 4. Acute on chronic hypoxemic respiratory failure secondarily to #1 and #2. 5. History of atrial fibrillation with current sinus mechanism on chronic anticoagulation with Eliqu is. 6. Deconditioning. 7. Hyponatremia, mild. 8. Chronic normocytic anemia, stable. CONSULTATIONS: Dr. Millan with Cardiology Service. Dr. Hughes with Nephrology Service. PERTINENT LABORATORY AND X-RAY FINDINGS: Sodium ranged between 133-139. Creatinine ranged between 1 .98-2.40. Estimated GFR ranged between 23-29. Serum iron level ranged between 25-27, TIBC 185, ferr itin 377. BNP 507, previously noted 454 on 12/03/2017. CBC showed hemoglobin ranging between 10.1-1 1.0. Blood cultures x2 from 12/05/2017 showed no growth at 48 hours. Blood cultures x2 from 018 showed no growth to date. Influenza A and B antigen 12/07/2017 negative. Respiratory virus pane l by PCR dated 12/08/2017 positive for influenza A. Urine culture dated 12/08/2017 showed no growth at 24 hours. Portable chest x-ray dated 12/04/2017 showed bilateral pulmonary edema. A 2D transthor acic echocardiogram dated 12/05/2017 showed ejection fraction of 55%-60%. Diastolic dysfunction note d. Moderate right atrial enlargement. Moderate to severe tricuspid valve regurgitation. Pulmonary artery pressure 70 mmHg. HOSPITAL COURSE: Patient was initially admitted to the telemetry unit after presenting with acute dy spnea in the context of known diastolic congestive heart failure and chronic hypoxemic respiratory fa ilure on intermittent oxygen supplementation. The patient was noted with elevated BNP in the 500 ran ge, initiated on IV Lasix therapy and evaluated by the Cardiology Service. Patient underwent repeat 2D transthoracic echocardiogram showing overall preserved ejection fraction of 55%-60% with diastolic dysfunction and severe pulmonary hypertension. The patient continued on spironolactone IV Lasix and continued to clinically improve respiratory serrano. The patient was noted with undulating fever durin g her hospital course concerning for potential developing pneumonia. Portable chest x-ray imaging x2 showed no acute infiltrate concerning for pneumonic process. The patient did receive IV antibiotic therapy empirically throughout the hospital course. The patient was evaluated for potential influenz a infection. Initial nasal swab was negative; however, viral PCR panel did confirm influenza A[facility], the patient received Tamiflu 75 mg x1 dose. Due to patient's overall renal function, pat ient will transition to 30 mg daily. Overall, the patient remained clinically stable achieving basel ine functional status prior to discharge. The patient is ready for discharge on 12/09/2017. DISCHARGE MEDICATIONS: 1. Tamiflu 30 mg 1 tablet p.o. daily x5 days. 2. Amiodarone 100 mg p.o. daily. 3. Eliquis 2.5 mg p.o. b.i.d. 4. Lipitor 10 mg p.o. at bedtime. 5. Calcitriol 0.25 mcg q.48 hours. 6. Clonidine 0.1 mg for systolic blood pressure greater than or equal to 180. 7. Dexilant 60 mg p.o. daily. 8. Uloric 40 mg p.o. daily. 9. Feosol 325 mg p.o. daily. 10. Prozac 20 mg p.o. daily. 11. Flonase nasal spray 1 spray in each naris daily p.r.n. 12. Lasix 40 mg p.o. daily. 13. Mucinex ER 600 mg p.o. q.12 h. 14. Hydralazine 25 mg p.o. t.i.d. 15. Levothyroxine 75 mcg 1 tab p.o. daily. 16. Lorazepam 0.5 mg p.o. t.i.d. p.r.n. 17. Metoprolol succinate 12.5 mg p.o. daily. 18. Nifedipine ER 30 mg p.o. daily. 19. K-Dur 20 mEq one tab p.o. daily. 20. Risperdal 0.5 mg p.o. at bedtime. 21. Spironolactone 12.5 mg p.o. daily. 22. Vitamin B1 of 250 mg p.o. daily. 23. Vitamin E 400 units p.o. daily. FOLLOWUP: Patient will follow up with her primary care provider, Dr. Chase Hatch within 7 days o f discharge. The patient will follow up with Dr. Hughes with Nephrology Service and to call his off ice for appointment time and date. CONDITION ON DISCHARGE: Fair. ACTIVITY: ad walt. DIET: Heart healthy. CODE STATUS: FULL. DISPOSITION: Home, 12/09/2017. Total time preparing and coordinating discharge was 37 minutes.
--- NOTE | 2017-12-24 22:41 | EKG ---
Test Reason : Blood Pressure : / mmHG Vent. Rate : 068 BPM Atrial Rate : 068 BPM P-R Int : 166 ms QRS Dur : 074 ms QT Int : 400 ms P-R-T Axes : 069 005 118 degrees QTc Int : 425 ms Normal sinus rhythm T wave abnormality, consider lateral ischemia Abnormal ECG Confirmed by MICHELLE REGAN ([id number]), general expeditor MOSES MERRILL ([id number]) on 12/24/2017 10:40:45 PM Referred By: Confirmed By:MICHELLE REGAN
== END 2017-12-09 17:45 | disposition home health service (06) | DRG 291 ==
LOC: ERS 20:48 → ERHOLD 12-05 00:18 → 2NO 12-05 18:06
PROVIDERS: ADMIT Emergency Medicine; ATTEND Emergency Medicine
PROC: 5A09357 Assistance with Respiratory Ventilation, Less than 24 Consecutive Hours, Continuous Positive Airway Pressure (ICD-10-PCS; principal; 2017-12-05)
PROC: 5A09357 Assistance with Respiratory Ventilation, Less than 24 Consecutive Hours, Continuous Positive Airway Pressure (ICD-10-PCS; 2017-12-07)
PROC: 5A09357 Assistance with Respiratory Ventilation, Less than 24 Consecutive Hours, Continuous Positive Airway Pressure (ICD-10-PCS; 2017-12-08)
PROC: 5A09357 Assistance with Respiratory Ventilation, Less than 24 Consecutive Hours, Continuous Positive Airway Pressure (ICD-10-PCS; 2017-12-09)
DX: I13.0 Hypertensive heart and chronic kidney disease with heart failure and stage 1 through stage 4 chronic kidney disease, or unspecified chronic kidney disease (principal); I50.33 Acute on chronic diastolic (congestive) heart failure; J96.21 Acute and chronic respiratory failure with hypoxia; N17.9 Acute kidney failure, unspecified; J18.9 Pneumonia, unspecified organism; E87.2 Acidosis; I27.20 Pulmonary hypertension, unspecified; N18.3 Chronic kidney disease, stage 3 (moderate); E87.1 Hypo-osmolality and hyponatremia; E66.01 Morbid (severe) obesity due to excess calories; E88.09 Other disorders of plasma-protein metabolism, not elsewhere classified; J44.0 Chronic obstructive pulmonary disease with (acute) lower respiratory infection; N25.81 Secondary hyperparathyroidism of renal origin; I48.0 Paroxysmal atrial fibrillation; Z79.01 Long term (current) use of anticoagulants; J10.1 Influenza due to other identified influenza virus with other respiratory manifestations; Z95.2 Presence of prosthetic heart valve; E78.5 Hyperlipidemia, unspecified; F32.9 Major depressive disorder, single episode, unspecified; E87.6 Hypokalemia; D63.1 Anemia in chronic kidney disease; Z68.39 Body mass index [BMI] 39.0-39.9, adult
CPT/HCPCS: 36415; 51702; 71045; 80048; 80053; 81003; 82550; 82553; 82728; 83540; 83550; 83880; 84484; 85025; 87040; 87086; 87633; 87804; 93005; 93306; 93798; 94640; 94760; 96365; 96375; 96376; A4216; G8978-GP-CJ; G8978-GP-CL; G8979-GP-CJ; G8980-GP-CJ; G8987-GO-CK; G8988-GO-CK; G8989-GO-CK; J0456; J0692; J0696; J1940; J3370; J7050; J7620

== ENCOUNTER 2017-12-16 16:19 | Observation (INO) | payer MEDICARE, MEDICAID ==
--- NOTE | 2017-12-16 17:01 | RAD ---
SINGLE VIEW OF THE CHEST 12/16/16 COMPARISON: 12/14/17. HISTORY: Shortness of breath. FINDINGS: Single view of the chest shows an enlarged but stable cardiomediastinal silhouette with atherosclerot ic calcifications in the aorta. The patient is status post aortic valve repair. There is no evidence of consolidation, mass or pleural effusion. IMPRESSION: Stable cardiomegaly. POS: [facility]
[2017-12-16 17:21] LABS: #Eosinphils 0.2 thou/uL (0.0-0.7); #Lymphocytes 1.1 thou/uL (1.20-3.40); %Basophils 0.4 % (0.0-1.0); %Eosinophils 2.4 % (0.0-10.0); %Monocytes 10.5 % (0.0-10.0); %Neutrophils 74.8 % (42.0-75.0); Hemoglobin 11.4 g/dL (12.0-16.0); Mean Corpuscular HGB CONC 32.9 g/dL (32.0-36.0); Mean Corpuscular Hemoglobin 30.5 pg (27.0-31.0); Mean Corpuscular Volume 92.6 fl (81.0-99.0); Mean Platelet Volume 8.7 fL (7.4-10.4); Platelet Count 300 thou/uL (130-400); RBC Distribution Width 13.9 % (11.5-14.5); Red Blood Cell (RBC) Count 3.75 mill/uL (4.20-5.40); White Blood Cell (WBC) Count 9.4 thou/uL (4.8-10.8)
[2017-12-16 17:40] LABS: ALT (SGPT) 7 U/L (8-55); AST (SGOT) 14 U/L (5-34); Albumin 3.5 g/dL (3.4-4.8); Alkaline Phosphatase 71 U/L (40-150); Anion Gap 14 mmol/L (10-20); BUN (Urea Nitrogen) 39 mg/dL (9.8-20.1); Bilirubin, Total 0.4 mg/dL (0.2-1.2); CK (CPK) 32 U/L (29-168); Calc. Creatinine Clearance 0 mL/min (70-130); Calcium 9.3 mg/dL (7.8-10.44); Carbon Dioxide 21 mmol/L (23-31); Chloride 106 mmol/L (98-107); Estimated GFR-MDRD 27; Globulin 4.5 g/dL (2.4-3.5); Glucose 120 mg/dL (83-110); Potassium 5.5 mmol/L (3.5-5.1); Sodium 135 mmol/L (136-145)
[2017-12-16 17:45] LABS: CKMB 0.5 ng/mL (0-6.6); Troponin I 0.011 ng/mL (< 0.028)
[2017-12-16] MEDS ORDERED: Furosemide 40 MG/4 ML VIAL ONE (18:44)
[2017-12-16 23:35] VITALS: BMI 34.6
[2017-12-17] MEDS: Benzonatate 100 MG CAP PO PRN (00:26)
[2017-12-17] MEDS: cefTRIAXone\\ROCEPHIN 1 GM, Syringe 0.4 ML in Sterile Water 9.6 ML SLOW IVP SCH (00:27)
[2017-12-17] MEDS ORDERED: Acetaminophen 325 MG TAB PO PRN (08:56)
[2017-12-17] MEDS ORDERED: Ondansetron HCl/PF 4 MG/2 ML Vial IVP PRN (08:56)
[2017-12-17] MEDS ORDERED: Ondansetron ODT 4 MG TAB PO PRN (08:56)
[2017-12-17] MEDS ORDERED: Lorazepam 0.5 MG TAB PO PRN (08:58)
[2017-12-17] MEDS ORDERED: CALCITRIOL PO SCH (09:00)
[2017-12-17] MEDS ORDERED: FLU VACC TS2017-18 (>65YR) 0.5 ML SYRINGE IM ONE (09:00)
[2017-12-17] MEDS ORDERED: NIFEdipine XL 30 MG TAB PO SCH (09:00)
[2017-12-17] MEDS: Amiodarone 200 MG TAB PO SCH (10:05)
[2017-12-17] MEDS: Apixaban 5 MG TAB PO SCH ×2 (10:06→20:28)
[2017-12-17] MEDS: hydrALAZINE 25 MG TAB PO SCH ×3 (10:06→20:58)
[2017-12-17] MEDS: guaiFENesin ER 600 MG TAB PO SCH ×2 (10:06→20:27)
[2017-12-17] MEDS: FLUoxetine HCl 20 MG CAP PO SCH (10:06)
[2017-12-17] MEDS: Vitami E (Dl,Tocopheryl Acet) 400 UNITS CAP PO SCH (10:07)
--- NOTE | 2017-12-17 11:32 | HP ---
CHIEF COMPLAINT: Shortness of breath and increased weight gain. HISTORY OF PRESENT ILLNESS: This is an 87-year-old female patient who just left the hospital, having been managed for flu, CHF exacerbation, and sent home on oral diuretics, furosemide once a day. The patient was also sent home on Tamiflu; however, according to the family, the patient started no more fluid and the blood pressure was also low. The patient developed worsening shortness of breath and congestion. As a result, the patient re-presented here and is now being admitted for further workup. Past medical history, family history, and social history remained the same. Please for the details, refer to the recent history and physical. REVIEW OF SYSTEMS: As documented in the body of the history. All the other systems were reviewed an d were found not to be significantly related to the presenting illness. LABORATORY INVESTIGATION: Showed unremarkable CBC. Chemistry showed a potassium of 5.5, sodium 135, BUN of 39, creatinine 2.9, bicarbonate of 21. BNP 283. PHYSICAL EXAMINATION: GENERAL: The patient was found not to be in any serious distress and noted with following vital sign s. VITAL SIGNS: Afebrile with temperature 98.1, pulse 70, respiratory rate 16, O2 sat 92%, blood pressu re 132/52. HEENT: Unremarkable. Moist oral mucosa. NECK: Supple. CARDIOVASCULAR SYSTEM: First and second heart sounds were heard. RESPIRATORY SYSTEM: Showed some rales. DIGESTIVE SYSTEM: Revealed an obese abdomen. EXTREMITIES: No significant peripheral edema. SKIN: No new gross rash. LYMPHATICS: No peripheral lymphadenopathy. IMPRESSION: 1. Congestive heart failure exacerbation. 2. Chronic kidney disease stage 4. 3. Resolving flu versus pneumonitis. 4. Congestive gastroenteropathy. 5. Hyperkalemia. PLAN: 1. Start this patient on IV diuretics to circumvent the limiting effect of congestive gastroenteropa thy on oral diuretics. 2. Empiric antibiotics with Omnicef. 3. Low potassium diet. Monitor the electrolytes closely. 4. Further management to be dependent on the clinical course.
[2017-12-17] MEDS: Furosemide 40 MG/4 ML VIAL SLOW IVP SCH (13:56)
[2017-12-17] MEDS ORDERED: (Febuxostat [Uloric] 40 MG) PO SCH (16:00)
[2017-12-17 17:04] LABS: Hemoglobin 11.2 g/dL (12.0-16.0); Platelet Count 263 thou/uL (130-400)
[2017-12-17] MEDS: Atorvastatin Calcium 10 MG TAB PO SCH (20:27)
[2017-12-17] MEDS: risperiDONE 1 MG TAB PO SCH (20:27)
[2017-12-17] MEDS: Cefdinir 300 MG CAP PO SCH (20:29)
[2017-12-18] MEDS: cefTRIAXone\\ROCEPHIN 1 GM, Syringe 0.4 ML in Sterile Water 9.6 ML SLOW IVP SCH (00:22)
[2017-12-18 04:46] LABS: #Eosinphils 0.3 thou/uL (0.0-0.7); #Lymphocytes 1.2 thou/uL (1.20-3.40); #Neutrophils 5.2 thou/uL (1.40-6.50); %Basophils 0.1 % (0.0-1.0); %Lymphocytes 15.9 % (21.0-51.0); %Monocytes 13.2 % (0.0-10.0); %Neutrophils 66.7 % (42.0-75.0); Hemoglobin 10.7 g/dL (12.0-16.0); Mean Corpuscular HGB CONC 31.6 g/dL (32.0-36.0); Mean Corpuscular Hemoglobin 29.3 pg (27.0-31.0); Mean Corpuscular Volume 92.5 fl (81.0-99.0); Mean Platelet Volume 8.9 fL (7.4-10.4); Platelet Count 248 thou/uL (130-400); RBC Distribution Width 14.1 % (11.5-14.5); Red Blood Cell (RBC) Count 3.65 mill/uL (4.20-5.40); White Blood Cell (WBC) Count 7.8 thou/uL (4.8-10.8)
[2017-12-18 05:01] LABS: Anion Gap 17 mmol/L (10-20); BUN (Urea Nitrogen) 39 mg/dL (9.8-20.1); Calc. Creatinine Clearance 31 mL/min (70-130); Calcium 8.9 mg/dL (7.8-10.44); Carbon Dioxide 21 mmol/L (23-31); Chloride 105 mmol/L (98-107); Estimated GFR-MDRD 29; Glucose 83 mg/dL (83-110); Potassium 4.3 mmol/L (3.5-5.1); Sodium 139 mmol/L (136-145)
[2017-12-18] MEDS: Furosemide 40 MG/4 ML VIAL SLOW IVP SCH ×2 (06:26→15:41)
[2017-12-18] MEDS: Levothyroxine Sodium 75 MCG TAB PO SCH (06:26)
--- NOTE | 2017-12-18 08:35 | PDOC.PN ---
- Subjective Encounter Start Date: 12/18/17 Encounter Start Time: 08:34 Subjective: Seen and examined with no new complaint - Objective Vital Signs & Weight: Vital Signs (12 hours) Temp Pulse Resp BP BP Pulse Ox 12/18/17 07:59 99.1 F 72 20 146/70 H 100 12/18/17 07:49 98.0 F 71 20 12/18/17 03:40 98.0 F 71 20 149/63 H 100 12/18/17 00:28 67 16 12/18/17 00:22 98.5 F 70 20 134/61 99 12/17/17 20:58 66 127/56 L Weight Weight 223 lb 11.2 oz I&O: 12/17/17 12/18/17 12/19/17 06:59 06:59 06:59 Intake Total 240 1428 Output Total 1000 Balance 240 428 Result Diagrams: 12/18/17 04:11 12/18/17 04:11 Phys Exam - Physical Examination Constitutional: NAD HEENT: PERRLA, moist MMs, sclera anicteric, TM's clear, oral pharynx no lesions Neck: no nodes, no JVD, supple, full ROM Respiratory: no wheezing, no rhonchi +rales bilaterally Cardiovascular: RRR, no significant murmur, no rub Gastrointestinal: soft, non-tender, no distention, positive bowel sounds Dx/Plan (1) Acute diastolic heart failure Code(s): I50.31 - ACUTE DIASTOLIC (CONGESTIVE) HEART FAILURE Status: Acute Comment: Continue Lasix 20mg IV daily, follow I/O's and daily weight (2) Acute on chronic kidney disease, stage 3 Code(s): N18.3 - CHRONIC KIDNEY DISEASE, STAGE 3 (MODERATE) Status: Acute Comment: Resolving, continue to monitor with diuresis (3) Acute respiratory failure with hypoxemia Code(s): J96.01 - ACUTE RESPIRATORY FAILURE WITH HYPOXIA Status: Acute Comment: Acute component improved, chronic hypoxia with home O2 requirement (4) CKD stage 3 due to type 2 diabetes mellitus Code(s): E11.22 - TYPE 2 DIABETES MELLITUS W DIABETIC CHRONIC KIDNEY DISEASE; N18.3 - CHRONIC KIDNEY DISEASE, STAGE 3 (MODERATE) Status: Acute (5) Pneumonia Code(s): J18.9 - PNEUMONIA, UNSPECIFIED ORGANISM Status: Acute (6) Diastolic CHF Code(s): I50.30 - UNSPECIFIED DIASTOLIC (CONGESTIVE) HEART FAILURE Status: Chronic (7) HLD (hyperlipidemia) Code(s): E78.5 - HYPERLIPIDEMIA, UNSPECIFIED Status: Chronic (8) HTN (hypertension) Code(s): I10 - ESSENTIAL (PRIMARY) HYPERTENSION Status: Chronic Qualifiers: Comment: Stable, continue home medication regimen (9) Obesity (BMI 30-39.9) Code(s): E66.9 - OBESITY, UNSPECIFIED Status: Chronic - Plan plan discussed w/ family, mendoza catheter, PT/OT, social worker health services Continue diuresis--will transition to oral diuretics this afternoon -: If sustained improvement -d/c next 24hrs * .
[2017-12-18] MEDS: Amiodarone 200 MG TAB PO SCH (08:56)
[2017-12-18] MEDS: Apixaban 5 MG TAB PO SCH ×2 (08:56→21:01)
[2017-12-18] MEDS: Cefdinir 300 MG CAP PO SCH ×2 (08:57→21:02)
[2017-12-18] MEDS: guaiFENesin ER 600 MG TAB PO SCH ×2 (08:57→21:02)
[2017-12-18] MEDS: hydrALAZINE 25 MG TAB PO SCH ×3 (08:57→21:00)
[2017-12-18] MEDS: FLUoxetine HCl 20 MG CAP PO SCH (08:57)
[2017-12-18] MEDS: Vitami E (Dl,Tocopheryl Acet) 400 UNITS CAP PO SCH (08:58)
[2017-12-18] MEDS ORDERED: Calcitriol 0.25 MCG CAP PO SCH (09:00)
[2017-12-18] MEDS: (Febuxostat [Uloric] 40 MG) PO SCH (09:01)
[2017-12-18] MEDS: Furosemide 40 MG TAB PO SCH (15:36)
[2017-12-18] MEDS ORDERED: Furosemide 40 MG TAB PO SCH (15:45)
[2017-12-18] MEDS: risperiDONE 1 MG TAB PO SCH (21:02)
[2017-12-18] MEDS: Atorvastatin Calcium 10 MG TAB PO SCH (21:02)
[2017-12-18] MEDS: Benzonatate 100 MG CAP PO PRN (21:09)
[2017-12-19] MEDS: cefTRIAXone\\ROCEPHIN 1 GM, Syringe 0.4 ML in Sterile Water 9.6 ML SLOW IVP SCH (00:34)
[2017-12-19] MEDS: Levothyroxine Sodium 75 MCG TAB PO SCH (04:56)
--- NOTE | 2017-12-19 08:13 | PDOC.PN ---
- Subjective Encounter Start Date: 12/19/17 Encounter Start Time: 08:30 Subjective: Patient feeling better overall. SOB resolved and doing well -: off oxygen. Son in room. - Objective MAR Reviewed: Yes Vital Signs & Weight: Vital Signs (12 hours) Temp Pulse Resp BP BP Pulse Ox 12/19/17 04:00 98.4 F 73 22 H 126/59 L 100 12/19/17 00:25 98.6 F 81 20 111/58 L 100 12/18/17 23:53 74 16 100 12/18/17 21:00 81 139/63 Weight Weight 218 lb 6.4 oz I&O: 12/18/17 12/19/17 12/20/17 06:59 06:59 06:59 Intake Total 1428 1080 Output Total 1000 850 Balance 428 230 Result Diagrams: 12/18/17 04:11 12/18/17 04:11 Phys Exam - Physical Examination Constitutional: NAD HEENT: moist MMs Respiratory: no wheezing, no rales, no rhonchi Cardiovascular: RRR Gastrointestinal: soft, positive bowel sounds Neurological: non-focal Psychiatric: normal affect, A&O x 3 Dx/Plan (1) Acute diastolic heart failure Code(s): I50.31 - ACUTE DIASTOLIC (CONGESTIVE) HEART FAILURE Status: Acute Comment: Switched to oral Lasix, weight down from admission (2) Acute on chronic kidney disease, stage 3 Code(s): N18.3 - CHRONIC KIDNEY DISEASE, STAGE 3 (MODERATE) Status: Acute Comment: Resolving, continue to monitor with diuresis (3) Acute respiratory failure with hypoxemia Code(s): J96.01 - ACUTE RESPIRATORY FAILURE WITH HYPOXIA Status: Acute Comment: Acute component improved, on home O2, doing well on RA today (4) Afib Code(s): I48.91 - UNSPECIFIED ATRIAL FIBRILLATION Status: Chronic Qualifiers: Atrial fibrillation type: paroxysmal Qualified Code(s): I48.0 - Paroxysmal atrial fibrillation Comment: Contiue Eliquis 2.5mg BID, rate-controlled and currently in SR (5) GERD (gastroesophageal reflux disease) Code(s): K21.9 - GASTRO-ESOPHAGEAL REFLUX DISEASE WITHOUT ESOPHAGITIS Status: Chronic (6) HLD (hyperlipidemia) Code(s): E78.5 - HYPERLIPIDEMIA, UNSPECIFIED Status: Chronic (7) HTN (hypertension) Code(s): I10 - ESSENTIAL (PRIMARY) HYPERTENSION Status: Chronic Qualifiers: Comment: Stable, continue home medication regimen - Plan cont current plan of care, plan discussed w/ family No evidence of pneumonia so will discontinue antibiotics -: d/c home on increased frequence of Lasix -: F/u with PCP next week to recheck creatinine * . - Discharge Day Encounter end time: 09:05
[2017-12-19] MEDS: guaiFENesin ER 600 MG TAB PO SCH (09:14)
[2017-12-19] MEDS: hydrALAZINE 25 MG TAB PO SCH (09:14)
[2017-12-19] MEDS: Vitami E (Dl,Tocopheryl Acet) 400 UNITS CAP PO SCH (09:14)
[2017-12-19] MEDS: Amiodarone 200 MG TAB PO SCH (09:14)
[2017-12-19] MEDS: Apixaban 5 MG TAB PO SCH (09:14)
[2017-12-19] MEDS: Furosemide 40 MG TAB PO SCH (09:15)
[2017-12-19] MEDS: FLUoxetine HCl 20 MG CAP PO SCH (09:15)
[2017-12-19] MEDS: (Febuxostat [Uloric] 40 MG) PO SCH (09:16)
--- NOTE | 2017-12-19 11:40 | DIS ---
DATE OF DISCHARGE: 12/19/2017 PRIMARY CARE PHYSICIAN: Dr. Hatch DIAGNOSES ON ADMISSION: 1. Exacerbation of congestive heart failure. 2. Chronic kidney disease stage 4. 3. Resolving fluid versus pneumonitis. 4. Congestive gastroenteropathy. 5. Hyperkalemia. DISCHARGE DIAGNOSES: 1. Acute exacerbation of diastolic congestive heart failure. 2. Acute on chronic kidney disease stage 3. 3. Acute hypoxic respiratory failure, improved. 4. Chronic atrial fibrillation. 5. Gastroesophageal reflux disease. 6. Hyperlipidemia. 7. Hypertension. PERTINENT LABORATORY: Creatinine 1.99 at discharge with normal potassium. PROCEDURES: None. CONSULTATIONS: None. HOSPITAL COURSE: This is an 87-year-old female who had a recent admission for exacerbation of CHF and the flu. She was discharged back on her daily dose of 40 mg of Lasix. The patient was noted to have increasing shortness of breath and congestion at home and return to the emergency room. She was found to be hypoxic on room air with exacerbation of her diastolic congestive heart failure. She was admitted to the hospital. There was some concern about possible pneumonitis. She was put on antibiotics initially; however, her chest x-ray came back negative. Her CBC remained with a normal white blood cell count during her hospitalization. The patient improved after IV diuresis with resolution of her hypoxia, resolution of her shortness of breath and back to her baseline. She did initially have a little high potassium of 5.5. This resolved with diuresis as well. I did extensively crisis counselor the patient's son, who is her medical care advocate about her congestive heart failure. At this time, will actually her to twice a day Lasix and see if that is better for her. We will continue just a low dose of potassium with increased dose of Lasix so that she does not get hyperkalemic again. DISCHARGE MANAGEMENT: Discharged home with home health. The patient will follow up with Dr. Hatch in 1 week for repeat basic metabolic panel. ACTIVITY: As tolerated. DIET: Healthy heart, low sodium, fluid restricted diet. The patient does require wound care for a small sacral ulcer that she had on admission. She is to continue her nebulizer treatments at home along with her oxygen as needed. DISCHARGE MEDICATIONS: 1. Furosemide 40 mg twice a day, 60 tablets dispensed. 2. Tessalon Perles 100 mg 3 times a day as needed for cough, 60 tablets dispensed. She is to continue all of her other home medications. 3. DuoNeb q.6-8h. 4. Amiodarone 100 mg daily. 5. Flonase 1 spray in each nostril daily as needed. 6. Ferrous sulfate 325 mg daily. 7. Uloric 40 mg daily. 8. Prozac 20 mg daily. 9. Dexilant 60 mg daily. 10. Calcitriol 1 capsule every other day. 11. Lipitor 10 mg at night. 12. Eliquis 2.5 mg twice a day. 13. Potassium chloride 20 mEq daily. 14. Nifedipine extended release 30 mg daily. 15. Metoprolol succinate 12.5 mg daily. 16. Levothyroxine 75 mcg daily. 17. Lorazepam 0.5 mg every 8 hours as needed for anxiety. 18. Hydralazine 25 mg 3 times a day. 19. Mucinex 600 mg twice a day. 20. Clonidine 0.1 mg as needed. 21. Vitamin D 1 tab daily. 22. Thiamine 250 mg daily. 23. Risperdal 2.5 mg at night. 24. Methylprednisolone 2 mg every other day. I spent 35 minutes arranging the details of this discharge, including >50% face to face time with the patient and family explaining discharge plan and followup. [facility]
[2017-12-19 11:43] VITALS: BP 127/61; TEMP 99.5
== END 2017-12-19 11:50 | disposition home health service (06) ==
LOC: ERS 16:19 → 2SW 18:05
PROVIDERS: ADMIT Internal Medicine; ATTEND Internal Medicine
DX: I13.0 Hypertensive heart and chronic kidney disease with heart failure and stage 1 through stage 4 chronic kidney disease, or unspecified chronic kidney disease (principal); N18.4 Chronic kidney disease, stage 4 (severe); I50.33 Acute on chronic diastolic (congestive) heart failure; J96.01 Acute respiratory failure with hypoxia; I48.2 Chronic atrial fibrillation; K21.9 Gastro-esophageal reflux disease without esophagitis; E78.5 Hyperlipidemia, unspecified; K52.89 Other specified noninfective gastroenteritis and colitis; E87.5 Hyperkalemia; Z88.1 Allergy status to other antibiotic agents; Z91.041 Radiographic dye allergy status
CPT/HCPCS: 71045; 80048; 80053; 82550; 82553; 82565; 83880; 84484; 85014; 85018; 85025 ×2; 85049; 87804 ×2; 93005; 93798; 94640 ×3; 96374; 96375; 96376 ×3; 97139 ×5; 99285; G0008; G0378 ×2; G8978; G8979; G8987; G8988; Q2036; 36415; 90471; 90682; A4216; J0696; J1940; J7620